=== PATIENT | male | born 1955 | race Caucasian/White ===

== ENCOUNTER 2018-01-16 05:33 | Day surgery (SDC) | payer MEDICARE, MEDICAID ==
[~2018-01-16] VITALS: Ht 182.9 cm; Wt 109.5 kg
--- NOTE | ~2018-01-16 | OP ---
PATIENT NAME: EVA PEGUERO MEDICAL RECORD: [id number] :[birth year] LOCATION:D.OPS ADMISSION DATE: SURGEON: SAMANTA CRAFT DO DATE OF OPERATION: 01/16/2018 PROCEDURE: Colonoscopy with polypectomy. INDICATIONS FOR PROCEDURE: Family history positive for colon cancer in the patient's brother as well as a personal history of colon polyps. His last colonoscopy was in 2014. SCOPE: Olympus video pediatric colonoscope. MEDICATIONS: Propofol 350 mg IV per anesthesia. WITHDRAWAL TIME: 8 minutes. ESTIMATED BLOOD LOSS: Minimal. COMPLICATIONS: None. FINDINGS: Informed consent was given. The patient was made comfortable with the above medication. After reaching an adequate level of sedation by slow IV push, the patient was placed on his left side. A digital rectal examination was performed and was normal. The endoscope was then advanced under direct visualization through the rectum to the cecum, confirmed by the presence of the appendiceal orifice and ileocecal valve. The endoscope was slowly withdrawn and the mucosa was carefully examined. The prep quality was inadequate for colorectal cancer screening purposes. There was still a significant amount of stool and liquid, which could not be suctioned through the endoscope due to solid particles. Of what could be seen of the mucosal alicia, there was a single, benign-appearing, sessile polyp measuring approximately 7 mm in diameter located in the descending colon. It was removed in one piece with a hot snare and completely retrieved. Retroflexion was performed in the rectum with a normal-appearing rectal wall. The endoscope was withdrawn from the patient. The patient tolerated the procedure well, and there were no complications. IMPRESSION: 1. A single benign-appearing sessile polyp located in the descending colon, which was removed with a hot snare. 2. Inadequate prep for colorectal cancer screening. PLAN AND RECOMMENDATIONS: 1. Discharge home when recovery parameters are met. 2. Follow up biopsy specimen results. 3. Repeat colonoscopy at the patient's convenience for further colorectal cancer screening and removal of polyps. I will recommend that the patient have his procedure scheduled after 11 so he can receive a split prep, which will help clear his stool out of the colon. TRANSINT:[id number] Voice Confirmation ID: [id number] DOCUMENT ID: [id number] OPERATIVE REPORT [id number] EVA PEGUERO SAMANTA CRAFT DO at 1232 CC: [id number] DICTATION DATE: 01/16/18 0833 TRACE EVIDENCE TECHNICIAN: 01/16/18 0911 [facility] 01/16/18 [address] [place] [address]
[2018-01-16 05:49] LABS: HEMATOCRIT 47.2 % (42.0-54.0); HEMOGLOBIN 17.1 g/dL (13.5-17.5); MCH 34.8 pg (26.0-34.0); MCHC 36.2 g/dL (31.0-37.0); MCV 95.9 fL (80.0-100.0); MEAN PLATELET VOLUME 9.7 fL (7.4-10.4); RBC 4.92 10x6/uL (4.20-6.10); RDW 13.4 % (11.5-14.5); WBC 8.4 10x3/uL (4.8-10.8)
[2018-01-16 06:29] LABS: ALBUMIN 3.7 g/dL (3.4-5.0); ALKALINE PHOSPHATASE 61 U/L (46-116); ALT (SGPT) 139 U/L (10-68); BILIRUBIN - TOTAL 0.69 mg/dL (0.2-1.3); CALC OSMOLALITY 278 mosm/kg (275-300); CALCIUM 8.9 mg/dL (8.5-10.1); CARBON DIOXIDE 26.4 mmol/L (21.0-32.0); CHLORIDE - SERUM 103 mmol/L (98-107); CREATININE - SERUM 0.9 mg/dL (0.6-1.3); GLUCOSE 120 mg/dL (74-106); PROTEIN - SERUM 8.1 g/dL (6.4-8.2); SODIUM 139 mmol/L (136-145); UREA NITROGEN 12 mg/dL (7-18); eGFR NON AFRICAN AMERICAN > 90 mL/min (90-120)
[2018-01-16] MEDS ORDERED: NORCO 10-325 TA1 TAB PO (06:32)
[2018-01-16] MEDS ORDERED: LISINOPRIL10 MG (06:33)
[2018-01-16] MEDS ORDERED: LYRICA25 MG PO (06:33)
[2018-01-16] MEDS ORDERED: ANORO ELLIPTA1 EACH INH (06:34)
[2018-01-16] MEDS ORDERED: VENTOLIN HFA18 GM INH (06:34)
[2018-01-16] MEDS ORDERED: OMEPRAZOLE40 MG PO (06:35)
[2018-01-16 06:36] VITALS: BP 126/84; Ht 182.9 cm; Wt 109.5 kg
== END 2018-01-16 09:30 | disposition home or self-care (01) ==
LOC: D.OPS 05:33 → EDBD 05:33 → D.OPS 08:00
PROVIDERS: Anesthesiology
DX: K63.5 Polyp of colon (principal); Z80.0 Family history of malignant neoplasm of digestive organs

== ENCOUNTER → 2018-01-18 08:41 | Outpatient (CLI) | payer MEDICARE ==
[2018-01-16 06:36] VITALS: BMI 32.7
[~2018-01-18 08:41] MED LIST: ANORO ELLIPTA1 EACH INH; LISINOPRIL10 MG; LYRICA25 MG PO; NORCO 10-325 TA1 TAB PO; OMEPRAZOLE40 MG PO; VENTOLIN HFA18 GM INH
[2018-01-18 10:17] LABS: ALBUMIN 3.8 g/dL (3.4-5.0); BILIRUBIN - DIRECT 0.13 mg/dL (0.00-0.30); BILIRUBIN - INDIRECT 0.4 mg/dL (0.00-1.00); BILIRUBIN - TOTAL 0.53 mg/dL (0.2-1.3); PROTEIN - SERUM 7.7 g/dL (6.4-8.2)
[2018-01-23 11:00] LABS: HCVGENO - HEP C QUANT QNS IU/mL (())
== END | disposition home or self-care (01) ==
LOC: D.US 01-16 08:30 → D.LAB 01-16 09:00 → D.US 08:30 → EDBD 08:41
PROVIDERS: Internal Medicine Gastroenterology
DX: R10.13 Epigastric pain (principal); R11.0 Nausea; R79.89 Other specified abnormal findings of blood chemistry; B18.2 Chronic viral hepatitis C; D69.6 Thrombocytopenia, unspecified

== ENCOUNTER 2018-01-23 05:10 | Day surgery (SDC) | payer MEDICARE ==
[~2018-01-23] VITALS: Ht 182.9 cm; Wt 109.5 kg
--- NOTE | ~2018-01-23 | OP ---
PATIENT NAME: EVA PEGUERO MEDICAL RECORD: [id number] :57 LOCATION:D.[facility] ADMISSION DATE: SURGEON: SAMANTA RCAFT DO DATE OF OPERATION: 01/23/2018 PROCEDURE: EGD with biopsies. INDICATIONS FOR PROCEDURE: Heartburn, nausea, epigastric pain. SCOPE: Olympus video gastroscope. MEDICATIONS: Propofol 200 mg IV per anesthesia. ESTIMATED BLOOD LOSS: Minimal. COMPLICATIONS: None. FINDINGS: Informed consent was given. The patient was made comfortable with the above medication. After reaching an adequate level of sedation by slow IV push, the patient was placed on his left side. The endoscope was advanced under direct visualization through the mouth to the second portion of the duodenum. The upper and middle thirds of the esophagus appeared normal. In the distal third of the esophagus, there were very small grade I esophageal varices without any bleeding stigmata. At the GE junction, there was mild evidence of LA class A reflux-induced esophagitis. The endoscope was advanced beyond the GE junction into the stomach and retroflexed view of the cardia, where a small sliding hiatal hernia was present. In the stomach, there was diffuse portal hypertensive gastropathy. There were a few scattered superficial small and linear ulcerations present in the antrum and prepyloric region of the stomach. There was diffuse erythema in the stomach consistent with gastritis. Random biopsies were taken to submit for histology and to rule out the presence of H. pylori. There was a single AVM located on the incisura of the stomach. It was not bleeding and no interventions were performed. The endoscope was advanced beyond the pylorus into the duodenum where the bulb, first portion, and second portion of the duodenum appeared normal. The endoscope was then withdrawn from the patient. The patient tolerated the procedure well and there were no complications. IMPRESSION: 1. Grade I esophageal varices in the distal esophagus without bleeding stigmata. 2. LA class A reflux-induced esophagitis. 3. Small sliding hiatal hernia. 4. Diffuse portal hypertensive gastropathy. 5. Gastritis. 6. Multiple small superficial and linear gastric ulcers. 7. 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 PLAN AND RECOMMENDATIONS: 1. Discharge home when recovery parameters are met. 2. Follow up biopsy specimen results. 3. GERD, diet and reflux precautions. 4. Protonix 40 mg daily times 8 weeks. 5. Carafate suspension 1 gram q.i.d. times 2 weeks. 6. Repeat EGD as needed for symptoms. OPERATIVE REPORT [id number] EVA PEGUERO TRANSINT:[id number] Voice Confirmation ID: [id number] DOCUMENT ID: [id number] SAMANTA CRAFT DO at 0816 CC: [id number] DICTATION DATE: 01/23/18 08 SPORTS ATTORNEY: 01/23/18 1107 [facility] [place] 01/23/18 [id number] [place] [address]
[2018-01-23 05:30] LABS: BASOPHILS 0.4 % (0-2); EOSINOPHILS 3.1 % (0-7); HEMATOCRIT 46.1 % (42.0-54.0); HEMOGLOBIN 16.7 g/dL (13.5-17.5); IMMATURE GRANULOCYTES 0.3 % (0-5); LYMPHOCYTES 37.6 % (15-50); MCH 34.4 pg (26.0-34.0); MCHC 36.2 g/dL (31.0-37.0); MCV 95.1 fL (80.0-100.0); MEAN PLATELET VOLUME 9.8 fL (7.4-10.4); MONOCYTES 9.5 % (2-11); NEUTROPHILS 49.1 % (40-80); PLATELET COUNT 93 10x3/uL (130-400); RBC 4.85 10x6/uL (4.20-6.10); RDW 13.1 % (11.5-14.5); WBC 9.2 10x3/uL (4.8-10.8)
[2018-01-23 05:40] LABS: APTT 28.2 SECONDS (22.8-39.4); INR 1.11 (0.85-1.17); PROTIME 13.9 SECONDS (11.6-15.0)
[2018-01-23 05:50] LABS: ALBUMIN 3.6 g/dL (3.4-5.0); ALKALINE PHOSPHATASE 67 U/L (46-116); ALT (SGPT) 134 U/L (10-68); BILIRUBIN - TOTAL 0.68 mg/dL (0.2-1.3); CALC OSMOLALITY 275 mosm/kg (275-300); CALCIUM 8.7 mg/dL (8.5-10.1); CARBON DIOXIDE 25.3 mmol/L (21.0-32.0); CHLORIDE - SERUM 104 mmol/L (98-107); CREATININE - SERUM 0.8 mg/dL (0.6-1.3); GLUCOSE 120 mg/dL (74-106); POTASSIUM - SERUM 3.9 mmol/L (3.5-5.1); PROTEIN - SERUM 7.8 g/dL (6.4-8.2); SODIUM 137 mmol/L (136-145); UREA NITROGEN 15 mg/dL (7-18); eGFR NON AFRICAN AMERICAN > 90 mL/min (90-120)
[2018-01-23 06:21] VITALS: BP 129/75; Ht 182.9 cm; Wt 109.5 kg
[2018-01-27 18:07] LABS: HCVGENO - HEP C QUANT 7370000 IU/mL (()); HCVGENO - LOG 10 6.867 (())
== END 2018-01-23 09:20 | disposition home or self-care (01) ==
LOC: D.OPS 05:10 → EDBD 07:30 → D.OPS 09:20
PROVIDERS: Anesthesiology; Internal Medicine Gastroenterology
DX: K21.0 Gastro-esophageal reflux disease with esophagitis (principal); K44.9 Diaphragmatic hernia without obstruction or gangrene; K76.6 Portal hypertension; K31.89 Other diseases of stomach and duodenum; K29.50 Unspecified chronic gastritis without bleeding; K25.9 Gastric ulcer, unspecified as acute or chronic, without hemorrhage or perforation; K31.819 Angiodysplasia of stomach and duodenum without bleeding; Z01.812 Encounter for preprocedural laboratory examination

== ENCOUNTER 2018-02-25 10:06 | Day surgery (SDC) | payer MEDICARE ==
[~2018-02-25] VITALS: Ht 182.9 cm; Wt 109.1 kg
--- NOTE | ~2018-02-25 | OP ---
PATIENT NAME: EVA PEGUERO MEDICAL RECORD: [id number] :57 LOCATION:D.OPS ADMISSION DATE: SURGEON: SAMANTA CRAFT DO DATE OF OPERATION: 02/25/2018 PROCEDURE: Colonoscopy with polypectomy. INDICATION FOR PROCEDURE: Family history positive for colon cancer in the patient's brother as well as personal history of colon polyps with his last colonoscopy being approximately a month and a half ago with a poor prep. SCOPE: Olympus video pediatric colonoscope. MEDICATIONS: Propofol 600 mg IV per anesthesia. ESTIMATED BLOOD LOSS: Minimal. COMPLICATIONS: None. FINDINGS: Informed consent was given. The patient was made comfortable with the above medication. After reaching an adequate level of sedation by slow IV push, the patient was placed on his left side. A digital rectal examination was performed and was normal. The endoscope was then advanced under direct visualization through the rectum to the cecum, confirmed by the presence of the appendiceal orifice and the ileocecal valve. The endoscope was slowly withdrawn and mucosa was carefully examined. The prep quality was fair. There were 2 polyps visualized on today's examination. They were both sessile and benign appearing. They ranged in size from 4-6 mm in diameter. They were both removed using hot forceps. There were no other findings on today's examination. Retroflexion was performed in the rectum with a normal-appearing rectal wall. The endoscope was then withdrawn from the patient. The patient tolerated the procedure well and there were no complications. IMPRESSION: 1. Two polyps as described above, removed using hot forceps. 2. Otherwise, normal colonoscopy to cecum. PLAN AND RECOMMENDATIONS: 1. Discharge home when recovery parameters are met. 2. Followup biopsy specimen results. 3. Continue current diet and current medications. 4. Recall colonoscopy in 3 years based on family history and personal history of polyps. TRANSINT:[id number] Voice Confirmation ID: [id number] DOCUMENT ID: [id number] SAMANTA CRAFT DO at 1739 CC: [id number] DICTATION DATE: 02/25/18 1314 E COMMERCE RETAILER: 02/25/18 1527 [facility] 02/25/18 [place] [address]
[2018-02-25 10:50] LABS: BASOPHILS 0.4 % (0-2); EOSINOPHILS 2.2 % (0-7); HEMOGLOBIN 16.8 g/dL (13.5-17.5); IMMATURE GRANULOCYTES 0.2 % (0-5); MCH 34.6 pg (26.0-34.0); MCHC 35.7 g/dL (31.0-37.0); MCV 96.7 fL (80.0-100.0); MEAN PLATELET VOLUME 9.5 fL (7.4-10.4); MONOCYTES 8.6 % (2-11); NEUTROPHILS 51.6 % (40-80); PLATELET COUNT 106 10x3/uL (130-400); RBC 4.86 10x6/uL (4.20-6.10); RDW 13.1 % (11.5-14.5); WBC 8.1 10x3/uL (4.8-10.8)
[2018-02-25 11:01] LABS: APTT 28.4 SECONDS (22.8-39.4); INR 1.08 (0.85-1.17); PROTIME 13.6 SECONDS (11.6-15.0)
[2018-02-25 11:04] LABS: ALBUMIN 3.8 g/dL (3.4-5.0); ALKALINE PHOSPHATASE 68 U/L (46-116); ALT (SGPT) 115 U/L (10-68); CALC OSMOLALITY 276 mosm/kg (275-300); CALCIUM 9.1 mg/dL (8.5-10.1); CARBON DIOXIDE 25.4 mmol/L (21.0-32.0); CHLORIDE - SERUM 104 mmol/L (98-107); CREATININE - SERUM 0.7 mg/dL (0.6-1.3); GLUCOSE 106 mg/dL (74-106); PROTEIN - SERUM 8.2 g/dL (6.4-8.2); SODIUM 139 mmol/L (136-145); UREA NITROGEN 10 mg/dL (7-18); eGFR NON AFRICAN AMERICAN > 90 mL/min (90-120)
[2018-02-25 11:24] VITALS: BP 153/91; Ht 182.9 cm; Wt 109.1 kg
== END 2018-02-25 14:33 | disposition home or self-care (01) ==
LOC: D.OPS 10:06
PROVIDERS: Anesthesiology
DX: D12.3 Benign neoplasm of transverse colon (principal); K63.5 Polyp of colon; Z86.010 Personal history of colon polyps; Z80.0 Family history of malignant neoplasm of digestive organs; Z01.812 Encounter for preprocedural laboratory examination

== ENCOUNTER → 2018-07-23 06:37 | Outpatient (CLI) | payer MEDICARE ==
[2018-02-25 11:24] VITALS: BMI 32.6
[2018-07-22 14:17] LABS: ALBUMIN 3.7 g/dL (3.4-5.0); BILIRUBIN - DIRECT 0.13 mg/dL (0.00-0.30); BILIRUBIN - INDIRECT 0.31 mg/dL (0.00-1.00); BILIRUBIN - TOTAL 0.44 mg/dL (0.2-1.3); PROTEIN - SERUM 8.3 g/dL (6.4-8.2)
== END | disposition home or self-care (01) ==
LOC: D.US 07-22 13:40
PROVIDERS: ATTEND Internal Medicine Gastroenterology
DX: R16.0 Hepatomegaly, not elsewhere classified (principal); R94.5 Abnormal results of liver function studies

== ENCOUNTER → 2018-07-29 11:19 | Outpatient (CLI) | payer MEDICARE | END | disposition home or self-care (01) | LOC: D.LAB 11:19 | DX: B18.2 Chronic viral hepatitis C (principal); K74.60 Unspecified cirrhosis of liver; R11.2 Nausea with vomiting, unspecified ==

== ENCOUNTER 2019-05-13 10:44 | Outpatient (CLI) | payer MEDICARE ==
[~2019-05-13] VITALS: Ht 182.9 cm; Wt 105.7 kg
--- NOTE | ~2019-05-13 | HEMODYNAMI ---
PATIENT:EVA PEGUERO MEDICAL RECORD: [id number] : 57 [facility]ATION:[facility] ADMISSION DATE: 05/13/19 Generatedon:05/13/201913:22 Patient name: EVA PEGUERO Patient #: [id number] SSN : : 1955 Date of study: 05/13/2019 Page: Of Hemodynamic Procedure Report Patient Data Patient Demographics Procedure consent was obtained First Name: EVA Gender: Male Last Name: MARIELENA : 1955 [facility] Initial: C Age: 63 year(s) Patient #: [id number] Race: Unknown Additional ID: [id number] Contact details [address]: [address] [place] [address] State: [place] City: [place] Zip code: [address] Past Medical History Allergies Allergen Reaction Date Comments Reported Other allergy 05/13/2019 Tramadol Admission Admission Data Admission Date: 05/13/2019 Admission Time: 10:44 Arrival Date: 05/13/2019 Arrival Time: 0:00 Procedure Procedure Types Cath Procedure Diagnostic Procedure Cardioversion External MARIELY Procedure Description Procedure Date Procedure Date: 05/13/2019 Procedure Start Time: 12:31 Procedure Staff Name Function Marco Gil MD Performing Physician Emely Sorenson RT Monitor Lela Friedman RN Nurse Archana Nolen RT Scrub Edwardo Deluca Director Mortgage Elisabet Alicea CRNA Additional personnel Procedure Data Procedure Complications No complications Procedure Medications Medication Administration Route Dosage 0.9% NaCl I.V. 100 ml/hr Oxygen etCO2 Nasal cannula Refer to Anesthesia Notes for Sedation Medications Hurricaine Morrill P.O. 2 Sprays Hemodynamics Rest Heart Rate: 121 (bpm) Snapshots Pre Cath Intra NCS Post Cath Vital Signs Time Heart Resp SPO2 etCO2 NIBP (mmHg) Rhythm Pain Sedation Rate (ipm) (%) (mmHg) Status Level (bpm) 12:49:53 101 13 94 0 112/92(107) A-Fib 0 (11) 10(A) , No pain 12:54:52 118 21 95 0 Measuring A-Fib 0 (11) 10(A) , No pain 12:56:14 148 14 98 31 Time A-Fib 0 (11) 10(A) Exceeded , No pain 12:58:21 85 14 98 31 102/86(99) A-Fib 0 (11) 10(A) , No pain 13:02:12 110 19 98 32 110/92(100) A-Fib 0 (11) 10(A) , No pain 13:07:11 162 18 96 2.2 Measuring A-Fib 0 (11) 10(A) , No pain 13:07:21 152 14 96 3.8 124/84(89) A-Fib 0 (11) 10(A) , No pain 13:11:27 160 18 86 11.4 115/75(92) A-Fib 0 (11) 5(A) , No pain 13:13:36 100 27 85 30.5 113/80(98) NSR 0 (11) 5(A) , No pain 13:17:46 86 21 91 18.3 107/69(81) NSR 0 (11) 5(A) , No pain Medications Time Medication Route Dose Verified Delivered Reason Notes Effectiv eness by by 12:57:23 0.9% NaCl I.V. 100 Marco Vogel used for ml/hr Louise Elder procedure RN 12:57:31 Oxygen etCO2 Macro Vogel used for Nasal St Hira Friedman procedure cannula MD PIZARRO 12:57:36 Refer to Marco Lara for Anesthesia [facility] sedation Notes for MD DICKINSON Sedation Medications 12:57:47 Hurricaine P.O. 2 Marco Vogel used for Morrill Sprays Broaddus Elder procedure housekeeper and laundry assistant Log Time Note 12:31:26 Arrival Date: 05/13/2019 12:00:00 AM 12:39:25 Procedure Status Elective Heart Cath (OP). 12:39:28 Emely ALVARADO(R) sent for patient. Start room use. 12:39:29 Time tracking: Regular hours (M-F 7:00 - 5:00) 12:39:35 Plan of Care:Hemodynamics will remain stable., Cardiac rhythm will remain stable., Comfort level will be maintained., Respiratory function will remain adequate., Patient/ family verbilizes understanding of procedure., Procedure tolerated without complication., Recovers from procedure without complications.. 12:48:52 Patient received from Pre/Post Procedure Room to CCL 2 Alert and oriented. Tansferred to table in Supine position. 12:48:55 Signed procedure consent form obtained from patient. 12:48:56 Warm blankets applied, and rebekah hugger turned on for patient comfort. 12:48:56 Correct patient and procedure confirmed by team. 12:48:57 ECG and BP/O2 sat monitors applied to patient. 12:48:57 Vital chart was started 12:49:01 Baseline sample Acquired. 12:49:41 Rhythm: atrial fibrillation 12:49:43 Full Disclosure recording started 12:49:51 H&P Date Dictated: 05/12/2019 Within 30 days and on chart.. 12:49:53 Pre-procedure instructions explained to patient. 12:49:55 Family in waiting room. 12:49:57 Patient NPO since Midnight. 12:50:13 Patient allergic to Other allergyTramadol 12:50:15 Is the patient allergic to Iodine/contrast media? No. 12:50:17 Was the patient premedicated? Yes 12:50:18 Is patient on blood thinner?Yes 12:50:22 ACC The patient was administered the following blood thiners within the last 24 hours: Eliquis 12:50:25 Patient diabetic? No. 12:50:29 Snore? Yes 12:50:30 Sleep apnea? Unknown 12:50:38 Airway obstruction? Yes COPD 12:50:41 Dentures? No ? 12:50:54 IV patent on arrival in right forearm with 0.[facility]. 12:50:58 Lab results completed and on chart. 12:51:04 Physician paged 12:55:03 Elisabet Alicea CRNA present and monitoring patient for TIVA. 12:57:23 0.9% NaCl 100 ml/hr I.V. was administered by Lela Friedman RN; used for procedure; Verbal order read back and verified. 12:57:31 Oxygen etCO2 Nasal cannula was administered by Lela Friedman RN; used for procedure; Verbal order read back and verified. 12:57:36 Refer to Anesthesia Notes for Sedation Medications was administered by Marco Gil MD; for sedation; Verbal order read back and verified. 12:57:40 --------ALL STOP TIME OUT------ 12:57:41 Final Timeout: patient, procedure, and site verified with staff and physician. All members of the team are in agreement. 12:57:47 Hurricaine Morrill 2 Sprays P.O. was administered by Lela Friedman RN; used for procedure; Verbal order read back and verified. 12:58:08 Sedation plan: TIVA Medication:Propofol 12:58:41 Quick Combo opened to sterile field. 13:03:16 MARIELY 13:03:20 Edwardo Deluca Test Manager present for MARIELY. 13:03:25 MARIELY started. 13:11:31 MARIELY completed. 13:11:32 ------Cardioversion------ 13:11:34 Quick combo pads placed on patients chest and back. 13:11:45 Defibrillator synced and charged to 200 Joules. 13:11:47 Shock delivered. 13:12:50 Patient cardioverted to sinus rhythm . 13:13:40 Procedure ended.(Physican Out) 13:14:01 Post-procedure physical assessment completed. ASA score P 2 - A patient with mild systemic disease as per Marco Gil MD. 13:14:04 Post procedure rhythm: sinus rhythm 13:14:07 Post procedure instruction explained to patient.Patient verbalizes understanding. 13:14:08 Patient needs reinforcement of post procedure teaching. 13:15:22 Procedure and supply charges have been captured, reviewed, submitted and are correct. 13:15:30 Procedure Complication : No complications 13:15:56 MARIELY Findings: MARIELY w/ cardioversion: no left atrial clot noted (proceed with cardioversion) 13:15:58 Operative report dictated upon procedure completion. 13:15:59 See physician's report for complete and final results. 13:16:01 Report given to Pre/Post Procedure Room. 13:16:04 Patient transfered to Pre/Post Procedure Room with Stretcher. 13:18:22 Vital chart was stopped 13:18:30 End room use (Document Last) 13:18:59 End room use (Document Last) 13:20:02 End room use (Document Last) Device Usage Item Manufacture Quantity Catalog Hospital Part Current Minimal Lot# / Name Number Charge Number Stock Stock Seri al# Code Quick [facility] 1 [id number] Combo Signature Audit Adams Stage Time Signature Unsigned Intra-Procedure 05/13/2019 Emely Sorenson 1:18:59 PM RT(R) Intra-Procedure 05/13/2019 Lela Friedman 1:20:02 PM RN Intra-Procedure 05/13/2019 Marco Rivas 1:22:42 PM Hira DICKINSON Signatures Performing Physician : Signature : Marco Gil MD Date : Time : Monitor : Emely Sorenson Signature : RT Date : Time : Nurse : Lela Friedman RN Signature : Date : Time : [facility] [address] [place] [address], [place] [address]
[2019-05-13] MEDS ORDERED: WELLBUTRIN SR150 MG PO (11:13)
[2019-05-13] MEDS ORDERED: PEPCID AC20 MG PO (11:14)
[2019-05-13] MEDS ORDERED: LASIX40 MG PO (11:14)
[2019-05-13] MEDS ORDERED: AZITHROMYCIN250 MG PO (11:14)
[2019-05-13] MEDS ORDERED: ELIQUIS5 MG PO (11:15)
[2019-05-13] MEDS ORDERED: MULTAQ400 MG PO (11:15)
[2019-05-13] MEDS ORDERED: CYMBALTA60 MG PO (11:17)
[2019-05-13] MEDS ORDERED: ZOFRAN4 MG PO (11:17)
[2019-05-13] MEDS ORDERED: PROTONIX40 MG PO (11:18)
[2019-05-13 11:28] VITALS: BP 127/98; Ht 182.9 cm; Wt 105.7 kg
[2019-05-13 11:38] LABS: BASOPHILS 0.4 % (0-2); EOSINOPHILS 3.5 % (0-7); HEMATOCRIT 49.2 % (42.0-54.0); HEMOGLOBIN 17.5 g/dL (13.5-17.5); IMMATURE GRANULOCYTES 0.2 % (0-5); LYMPHOCYTES 34.7 % (15-50); MCH 34.2 pg (26.0-34.0); MCHC 35.6 g/dL (31.0-37.0); MCV 96.1 fL (80.0-100.0); MEAN PLATELET VOLUME 10.8 fL (7.4-10.4); MONOCYTES 7.3 % (2-11); NEUTROPHILS 53.9 % (40-80); RBC 5.12 10x6/uL (4.20-6.10); RDW 12.7 % (11.5-14.5); WBC 10.3 10x3/uL (4.8-10.8)
[2019-05-13 11:42] LABS: PLATELET COUNT 143 10x3/uL (130-400)
[2019-05-13 11:58] LABS: INR 1.19 (0.85-1.17)
[2019-05-13 12:34] LABS: CALC OSMOLALITY 278 mosm/kg (275-300); CALCIUM 8.9 mg/dL (8.5-10.1); CARBON DIOXIDE 26.4 mmol/L (21.0-32.0); CHLORIDE - SERUM 102 mmol/L (98-107); GLUCOSE 109 mg/dL (74-106); POTASSIUM - SERUM 4.5 mmol/L (3.5-5.1); SODIUM 137 mmol/L (136-145); UREA NITROGEN 23 mg/dL (7-18); eGFR NON AFRICAN AMERICAN 80 mL/min (90-120)
--- NOTE | 2019-05-13 13:30 | NUR ---
PT RECEIVED VIA STRETCHER POST MARIELY AND CARDIOVERSION FOR RECOVERY. PT AWAKE AND ALERT, DENIES PAIN OR DIFFICULITY SWALLOWING. IV PATENT INFUSING VIA R HAND PER ORDERS. PT PLACED ON CARDIAC MONITORS, AND O2 VIA NC AT 1L. HR NSR RATE 76, BP 90/60, RR 13, SAT 95 ON 1L/NC. SLIGHT RED AREA IN MIDDLE CHEST FROM CARDIOVERSION. CALL LIGHT IN REACH, FAMILY AT BEDSIDE
[2019-05-13] MEDS ORDERED: ALDACTONE25 MG PO (13:36)
[2019-05-13] MEDS ORDERED: AMIODARONE HCL200 MG PO (13:37)
--- NOTE | 2019-05-13 13:45 | NUR ---
PT AWAKE AND VISITNG W FAMILY. DENIES PAIN OR DIFFICULITY SWALLOWING. VSS. CALL LIGHT IN REACH, FAMILY AT BS
--- NOTE | 2019-05-13 14:10 | NUR ---
PT DOING WELL, NO C/O PAIN OR DIFFICULITY SWALLOWING. SIPS OF SPRITE GIVEN. VSS. CALL LIGHT IN REACH
--- NOTE | 2019-05-13 14:22 | NUR ---
DISCHARGE INSTRUCTIONS REVIEWED W PT AND DAUGHTER. MED LIST AND MEDICATION CHANGES REVIEWED, INSTRUCTIONS ON NEW MEDICATIONS GIVEN. BOTH VERBALIZED UNDERSTANDING. IV REMOVED W CATH INTACT, MONITORS REMOVED. PT SWALLOWING LIQUIDS W/O DIFFICULITY OF PAIN. PT UP TO DRESS FOR DISCHARGE
--- NOTE | 2019-05-13 14:30 | NUR ---
PT AMBULATED TO BR, VOIDING W/O DIFFICULITY. PT THEN DISCHARGED VIA WC TO DAUGHTER WAITING IN PRIVATE VEHICLE. PT HAD ALL BELONGINGS AND DISCHARGE INFORMATION.
--- NOTE | 2019-05-15 14:13 | TEE ---
PATIENT:EVA PEGUERO MEDICAL RECORD: [id number] LOCATION:D.[facility] AGE OF PATIENT: 63 ADMISSION DATE: 05/13/19 SEX: M REFERRING PHYSICIAN: INTERPRETING PHYSICIAN: JEZ ONOFRE MD TRANSESOPHAGEAL ECHOCARDIOGRAM Date: 05/13/19 MARIELY CHARGE Y INDICATIONS: AFIB, ASSESS FOR CLOTS PREMEDICATIONS: PATIENT'S RESPONSE PROCEDURE DOPPLER MEASUREMENTS: LVIT LA PA RA LVOT RVOT Asc. Ao AV Gradient Peak AV Mean AV Area MV Gradient Peak MV Mean MV Area INTERPRETATION: Doppler: 2-D: COLOR FLOW DOPPLER NORMAL SALINE STUDY: MISCELLANOUS: DIAGNOSIS: PLAN: Model Artists':3 Dr. Fernández Halal Butcher: Brisa MORENO COMMENTS: DATE OF SERVICE: DESCRIPTION OF PROCEDURE: On general sedation via TIVA anesthesia, a transesophageal Omniplane probe was placed in the distal esophagus and proximal stomach without difficulty. FINDINGS: As follows, LVH appears present. LV internal dimensions appear in the upper limits of normal. LV is globally hypokinetic. Overall function reduced 30%. Aortic valve is tricuspid. No evidence of stenosis by Doppler TRANSESOPHAGEAL ECHOCARDIOGRAM REPORT [id number] LISSETTE PEGUERO interrogation. No significant AI. Left atrium appears normal in dimensions. Left atrial appendage is well visualized with no evidence of thrombus. Good contractility via Doppler interrogation. Mitral valve appears normal with no evidence of prolapse. Mild MR. Right-sided chambers are in the upper limits of normal. There is [id number] TR. IMPRESSION: No evidence of thrombus in the left atrial appendage, decreased left ventricular systolic function. TRANSINT:[id number] Voice Confirmation ID: [id number] DOCUMENT ID: [id number] at 1413 CC: [id number] DICTATION DATE: 05/13/19 1320 SUPERVISOR FUR FLOOR WORKER: 05/14/19 0555 [facility] CLI 05/13/19 [facility] [address] [id number]
--- NOTE | 2019-05-15 14:13 | OP ---
PATIENT NAME: EVA PEGUERO MEDICAL RECORD: [id number] :57 LOCATION:D.[facility] ADMISSION DATE: SURGEON: JEZ ONOFRE MD DATE OF OPERATION: 05/13/2019 PROCEDURE: Cardioversion. DESCRIPTION OF PROCEDURE: After general sedation via TIVA via anesthesia, a single synchronized shock was successful in restoring atrial fibrillation to normal sinus rhythm. IMPRESSION: Successful atrial fibrillation to normal sinus rhythm. COMPLICATIONS: None. DISPOSITION: To the floor, stable. TRANSINT:[id number] Voice Confirmation ID: [id number] DOCUMENT ID: [id number] JEZ ONOFRE MD at 1413 CC: [id number] DICTATION DATE: 05/13/19 1319 PATIENT SVCS MGR: 05/13/19 1941 [facility] CLI 05/13/19 [facility] [address] [place] [address]
== END 2019-05-13 14:30 | disposition home or self-care (01) ==
LOC: D.CATH 10:44
PROVIDERS: ATTEND Internal Medicine Interventional Cardiology
DX: I48.91 Unspecified atrial fibrillation (principal); K21.9 Gastro-esophageal reflux disease without esophagitis; R12 Heartburn; I10 Essential (primary) hypertension; Z72.0 Tobacco use

== ENCOUNTER → 2019-08-29 13:40 | Outpatient (CLI) | payer MEDICARE ==
[2019-05-13 11:28] VITALS: BMI 31.6
--- NOTE | ~2019-08-29 | EC ---
PATIENT:EVA PEGUERO DATE OF SERVICE: 08/29/19 SEX: M MEDICAL RECORD: [id number] DATE OF : 57 [facility] AGE OF [facility]: 64 ADMISSION DATE: 08/29/19 REFERRING PHYSICIAN: INTERPRETING PHYSICIAN: JEZ ONOFRE MD ECHOCARDIOGRAM REPORT ECHO CHARGES 4 ECHO COMPLETE Date: 08/29/19 CLINICAL DIAGNOSIS: CARDIOMYOPATHY H/O HTN/A-FIB/CARDIOVERSION ECHOCARDIOGRAPHIC MEASUREMENTS (adult normal given) AC root (d.<3.7cm) 3.3 cm LV Septum d (<1.2 cm> 1.6 cm Valve Excursion 2.3 cm LV Septum (systole) 2.1 cm Left Atria (s.<4.0cm> 4.2 cm LVPW d(<1.2cm) 1.5 cm RV (d.<2.3cm) 3.2 cm LVPW (sytole) 2.2 cm LV diastole(<5.6CM) 5.4 cm MV E-F(>70mm/sec) cm LV systole 3.5 cm LVOT Diameter 2.1 cm MV exc.(>10mm) cm Est.ejection fraction (50-75%) % DOPPLER: LVIT cm/sec A 56.0 cm/sec E 77.0 cm/sec LA cm/sec RVSP 25.0 mmHg LVOT 112 cm/sec AOP1/2T m/s Asc. Ao 129 cm/sec RVOT 53.0 cm/sec RA cm/sec PA 71.0 cm/sec AV Gradient Peak 6.6 mmHg AV Mean 3.7 mmHg AV Area 2.7 cm MV Gradient Peak 3.4 mmHg MV Mean 0.96 mmHg MV Area cm COMMENTS: OP - HC Speck Dyer: 1 ARUN PRISCA Snubber: 3 Dr. Fernández TAPE# PACS Pericardial Effusion N DATE OF SERVICE: Adequate 2D, color flow imaging, spectral Doppler, and M-Mode. LVH is present. LV internal dimensions are normal. Wall motion is normal. EF is greater than or equal to 55%. Aortic valve is tricuspid. No evidence of stenosis by Doppler interrogation. Left atrium is minimally dilated at 4.2 cm. Mitral valve shows no prolapse. Trace MR. Right-sided chambers are grossly normal. Trace TR. ECHOCARDIOGRAM REPORT [id number] EVA PEGUERO TRANSINT:[id number] Voice Confirmation ID: [id number] DOCUMENT ID: [id number] JEZ ONOFRE MD CC: [id number] DICTATION DATE: 09/01/19 112 GRATING MACHINE OPERATOR: 09/01/19 1302 [facility] CLI 08/29/19 [id number] [place] [id number]
[~2019-08-29 13:40] MED LIST changes: +ALDACTONE25 MG PO; +AMIODARONE HCL200 MG PO; +AZITHROMYCIN250 MG PO; +CYMBALTA60 MG PO; +ELIQUIS5 MG PO; +LASIX40 MG PO; +MULTAQ400 MG PO; +PEPCID AC20 MG PO; +PROTONIX40 MG PO; +WELLBUTRIN SR150 MG PO; +ZOFRAN4 MG PO
== END | disposition home or self-care (01) ==
LOC: D.HCCECHO 08-26 10:30
PROVIDERS: ATTEND Internal Medicine Interventional Cardiology
DX: I42.9 Cardiomyopathy, unspecified (principal)

== ENCOUNTER → 2020-01-06 08:47 | Outpatient (CLI) | payer MEDICARE ==
[2019-05-13 11:28] VITALS: BMI 31.6
== END | disposition home or self-care (01) ==
LOC: D.US 08:47
PROVIDERS: ATTEND Internal Medicine Interventional Cardiology
DX: I65.23 Occlusion and stenosis of bilateral carotid arteries (principal)

== ENCOUNTER → 2020-01-12 08:23 | Outpatient (CLI) | payer MEDICARE ==
[2019-05-13 11:28] VITALS: BMI 31.6
== END | disposition home or self-care (01) ==
LOC: D.HCCARDIO 08:23
PROVIDERS: ATTEND Internal Medicine Cardiovascular Disease
DX: I20.9 Angina pectoris, unspecified (principal)

== ENCOUNTER 2020-01-22 07:11 | Day surgery (SDC) | payer MEDICARE ==
[~2020-01-22] VITALS: Ht 180.3 cm; Wt 117.3 kg
--- NOTE | ~2020-01-22 | HEMODYNAMI ---
PATIENT:EVA PEGUERO MEDICAL RECORD: [id number] : 57 LOCATION:[facility] ADMISSION DATE: 01/22/20 Generatedon:01/22/20209:35 Patient name: EVA PEGUERO Patient #: [id number] SSN : [id number] : 1955 Date of study: 01/22/2020 Page: Of Hemodynamic Procedure Report Patient Data Patient Demographics Procedure consent was obtained First Name: EVA Gender: Male Last Name: MARIELENA : 1955 Middle Initial: C Age: 64 year(s) Patient #: [id number] Race: SSN: [id number] Additional ID: [id number] Contact details Address: [address] [place] [address] State: [place] City: [place] Zip code: [address] Past Medical History Performed procedures and imaging results Date Procedure Procedure Results Comments 01/12/2020 Stress testing Positive->Intermediate with SPECT MPI risk Allergies Allergen Reaction Date Comments Reported Other allergy 05/13/2019 Tramadol Other allergy 01/22/2020 tramadol Admission Admission Data Admission Date: 01/22/2020 Admission Time: 7:11 Arrival Date: 01/22/2020 Arrival Time: 0:00 Admit Source: Other Insurance Payor: Medicare [facility] #: [id number] Height (in.): 71 BSA: 2.35 (m2) Height (cm.): 180.34 BMI: 36.06 (kg/m2) Weight (lbs.): 258.54 Weight (kg.): 117.27 Lab Results Lab Result Date: 01/22/2020 Lab Result Time: 0:00 CBC Name Units Result Min Max Hematocrit % 44.7 --(*---)-- 42 54 Hemoglobin g/dl 15.5 --(-*--)-- 13.5 17.5 Procedure Procedure Types Cath Procedure Diagnostic Procedure LHC LHC w/Coronaries FFR/IVUS FFR Initial Sedation Charges Moderate Sedation up to 15 minutes Procedure Description Procedure Date Procedure Date: 01/22/2020 Procedure Start Time: 9:17 Procedure End Time: 9:33 Procedure Staff Name Function Marco Gil MD Performing Physician Arthur Tapia RN Nurse Fatimah Verma RT Monitor Archana Nolen RT Scrub Procedure Data Cath Procedure Fluoroscopy Diagnostic fluoroscopy Total fluoroscopy Time: 3.3 time: 3.3 min min Diagnostic fluoroscopy Total fluoroscopy dose: 915 dose: 915 mGy mGy Contrast Material Contrast Material Type Amount (ml) Isovue 300 77 Entry Location Entry Primary Successful Side Size Upsize Upsize Entry Closure Lindsay ccessful Closure Location (Fr) 1 (Fr) 2 (Fr) Remarks Device Remarks Radial Right 6 Fr Mechanical artery Short Compression Estimated blood loss: 5 ml Diagnostic catheters Device Type Used For End Catheter Placement DIAGNOSTIC Fitzwilliam 110cm 5 Multi-vessel Fr catheter ([id number]) Angiography Procedure Complications No complications Procedure Medications Medication Administration Route Dosage 0.9% NaCl I.V. 100 ml/hr Oxygen etCO2 Nasal cannula 2 l/min Heparin Flush Bag added to field 2 bags (1000units/500ml NS) Lidocaine 2% added to field 20 Radial Cocktail added to field 1 syringe (Verapamil 2mg/Nitro 400mcg/Heparin 1500units) Versed I.V. 2 mg Fentanyl I.V. 100 mcg Radial Cocktail I.A. 1 syringe (Verapamil 2mg/Nitro 400mcg/Heparin 1500units) Heparin Bolus I.V. 2000 units Hemodynamics Rest BSA: 2.35 (m2) HGB: 15.5 (g/dl) O2 Consumption: Estimated: 260.47 (ml/min) O2 Co nsumption indexed: Estimated:110.84 (ml/min/m) Heart Rate: 54 (bpm) Pressure Samples Time Site Value (mmHg) Purpose Heart Use Rate(bpm) 9:19 LV 107/-2,-1 Snapshot 61 9:19 AO 102/64(82) Pullback 61 9:19 LV 115/1,4 Pullback 61 Gradients Valve Time Site 1 Site 2 Mean SEP/DFP Peak To Heart Use (mmHg) (sec/min) Peak Rate (mmHg) (bpm) Aortic 9:19 LV AO 9 17 13 61 115/1,4 102/64(82) Calculations Valve P-P Mean Valve Index Valve Source Name Gradient Area Flow (cm2) Aortic 13 9 13 9 Snapshots Pre Cath Intra NCS Post Cath Vital Signs Time Heart Resp SPO2 etCO2 NIBP (mmHg) Rhythm Pain Sedation Rate (ipm) (%) (mmHg) Status Level (bpm) 8:56:53 54 13 94 11.3 131/79(105) NSR 0 (11) 10(A) , No pain 9:01:09 51 13 93 24.8 134/83(106) NSR 0 (11) 10(A) , No pain 9:05:28 53 11 93 29.4 138/78(116) NSR 0 (11) 10(A) , No pain 9:09:42 54 11 93 27.9 133/87(100) NSR 0 (11) 10(A) , No pain 9:13:58 55 11 93 42.9 141/84(125) NSR 0 (11) 9(A) , No pain 9:19:03 57 13 94 23.3 136/76(100) NSR 0 (11) 9(A) , No pain 9:23:19 60 11 91 43.7 132/73(112) NSR 0 (11) 9(A) , No pain 9:27:37 56 11 92 39.2 130/74(98) NSR 0 (11) 10(A) , No pain 9:31:53 54 12 94 34.6 132/74(114) NSR 0 (11) 10(A) , No pain Medications Time Medication Route Dose Verified Delivered Reason Note s Effectiveness by by 8:54:57 0.9% NaCl I.V. 100 Arthur Arthur Per physician ml/hr Regina Tapia RN RN 8:55:07 Oxygen etCO2 2 l/min Arthur Arthur for low 02 sats Nasal Lorigan Lorbita cannula RN RN 8:55:18 Heparin Flush added 2 bags Arthur Arthur used for Bag to Lorigan Lorigan procedure (1000units/500ml RN RN NS) 8:55:32 Lidocaine 2% added 20ml Arthur Arthur for local to vial Lorigan Lorigan anesthetic RN RN 8:55:42 Radial Cocktail added 1 Arthur Arthur used for (Verapamil to syringe Lorigan Lorigan procedure 2mg/Nitro RN RN 400mcg/Heparin 1500units) 9:16:31 Versed I.V. 2 mg Arthur Arthur for sedation Lorigan Lorigan RN RN 9:16:40 Fentanyl I.V. 100 mcg Arthur Arthur for sedation Regina Tapia RN, RN 9:17:37 Radial Cocktail I.A. 1 Arthur Lara for (Verapamil syringe Regina Gil vasodilation 2mg/Nitro MOIRA DICKINSON 400mcg/Heparin 1500units) 9:26:49 Heparin Bolus I.V. 2,000 Arthur Lara for units Regina Gil anticoagulation MOIRA DICKINSON Procedure Log Time Note 8:19:32 Informed consent obtained and on chart 8:20:06 Diagnostic Cath Status : Elective 8:24:51 Lab Result : Hemoglobin 15.5 g/dl 8:24:51 Lab Result : Hematocrit 44.7 % 8:24:56 Admit Source: Other 8:25:01 ACC Patient presents with Stable Angina CCS Anginal Class 2--Slight limitation of ordinary activity. 8:25:03 Procedure Status Elective Heart Cath (OP). 8:25:06 Time tracking: Regular hours (M-F 7:00 - 5:00) 8:25:11 Plan of Care:Hemodynamics will remain stable., Cardiac rhythm will remain stable., Comfort level will be maintained., Respiratory function will remain adequate., Patient/ family verbilizes understanding of procedure., Procedure tolerated without complication., Recovers from procedure without complications.. 8:25:24 H&P Date Dictated: 01/01/2020 Within 30 days and on chart.. 8:25:25 Pre-procedure instructions explained to patient. 8:25:26 Pre-op teaching completed and patient verbalized understanding. 8:25:28 Family in waiting room. 8:25:30 Patient NPO since Midnight. 8:25:41 Patient allergic to Other allergytramadol 8:25:48 Lab results completed and on chart. 8:26:30 Stress Test: yes; abnormal inferior 8:26:32 Alarms reviewed by R. N. 8:26:33 Sharps counted by scrub and verified by R.N. 8:26:56 Arrival Date: 01/22/2020 12:00:00 AM 8:27:01 Patient Height : 71 inches 8:27:05 Patient Weight : 258.54 lbs 8:27:19 Insurance Payor : Medicare 8:36:41 Fatimah Verma RT(R) sent for patient. Start room use. 8:41:48 Patient received from Pre/Post Procedure Room to CCL 1 Alert and oriented. Tansferred to table in Supine position. 8:42:17 Warm blankets applied, and rebekah hugger turned on for patient comfort. 8:42:18 Correct patient and procedure confirmed by team. 8:42:18 ECG and BP/O2 sat monitors applied to patient. 8:42:24 Is the patient allergic to Iodine/contrast media? No. 8:42:25 Was the patient premedicated? No 8:42:27 Is patient on blood thinner?No 8:42:29 Patient diabetic? No. 8:42:32 If diabetic: On Metformin? N/A 8:42:33 ----Pre-sedation anethsthesia assessment.---- 8:42:37 Previous problem with sedation/anesthesia? No ? 8:42:38 Snore? Yes 8:42:40 Sleep apnea? No 8:42:41 Deviated septum? No 8:42:42 Opens mouth fully? Yes 8:42:44 Sticks out tongue? Yes 8:42:49 Airway obstruction? Yes COPD 8:42:52 Dentures? No ? 8:42:59 Patient pain scale 0/10 ?. 8:43:04 IV patent on arrival in left antecubital with 0.9% NaCl at [facility]. 8:52:09 1) 90+ Normal kidney functon but urine findings or structural abnormalities or genetic trait point to kidney disease. 8:52:14 Maximum allowable contrast dose (3.7 X eGFR X 0.75)250 ml. 8:54:57 0.9% NaCl 100 ml/hr I.V. was administered by Arthur Tapia RN; Per physician; Verbal order read back and verified. 8:55:07 Oxygen 2 l/min etCO2 Nasal cannula was administered by Arthur Tapia RN; for low 02 sats; Verbal order read back and verified. 8:55:18 Heparin Flush Bag (1000units/500ml NS) 2 bags added to field was administered by Arthur Tapia RN; used for procedure; Verbal order read back and verified. 8:55:32 Lidocaine 2% 20ml vial added to field was administered by Arthur Tapia RN; for local anesthetic; Verbal order read back and verified. 8:55:42 Radial Cocktail (Verapamil 2mg/Nitro 400mcg/Heparin 1500units) 1 syringe added to field was administered by Arthur Tapia RN; used for procedure; Verbal order read back and verified. 8:55:48 Vital chart was started 9:08:03 Zero performed for pressure channel P1 9::55 Baseline sample Acquired. 9:13:36 Physician arrived 9:13:37 --------ALL STOP TIME OUT------ 9:13:38 Final Timeout: patient, procedure, and site verified with staff and physician. All members of the team are in agreement. 9:13:42 Right Radial & Right Groin site verified by team. 9:13:46 Fire Safety Assessment: A--An alcohol-based skin anteseptic being used preoperatively., C--Open oxygen or nitrous oxide is being used., D--An ESU, laser, or fiber-optic light is being used. 9:13:50 Physical assessment completed. ASA score P 2 - A patient with mild systemic disease as per Marco Gil MD. 9:13:55 Sedation plan: IV Moderate Sedation Medication:Versed, Fentanyl 9:13:59 Use device set Radial Dx or PCI 9:14:00 ACIST Syringe (85213) opened to sterile field. 9:14:01 Medline Cath Pack ([id number]) opened to sterile field. 9:14:01 Bag Decanter () opened to sterile field. 9:14:01 ACIST Hand Control (05672) opened to sterile field. 9:14:02 ACIST Manifold (36394) opened to sterile field. 9:14:02 Tegaderm 4 x 4 (1626W) opened to sterile field. 9:14:04 MBrace Wrist Support ([id number]) opened to sterile field. 9:14:08 EMERALD Guide Wire (740-487) opened to sterile field. 9:14:08 SHEATH 6FR RAIN (0577860) opened to sterile field. 9:16:31 Versed 2 mg I.V. was administered by Arthur Tapia RN; for sedation; Verbal order read back and verified. 9:16:40 Fentanyl 100 mcg I.V. was administered by Arthur Tapia RN; for sedation; Verbal order read back and verified. 9:17:09 Procedure started. 9:17:10 Full Disclosure recording started 9:17:13 Local anesthetic to right radial artery with Lidocaine 2% by Marco Gil MD.INITIAL ACCESS ONLY 9:17:23 A 6 Fr Short sheath was inserted into the Right Radial artery 9:17:37 Radial Cocktail (Verapamil 2mg/Nitro 400mcg/Heparin 1500units) 1 syringe I.A. was administered by Marco Gil MD; for vasodilation; Verbal order read back and verified. 9:18:11 A DIAGNOSTIC Fitzwilliam 110cm 5 Fr catheter (750813) was advanced over the wire and used for Multi-vessel Angiography. 9:19:41 LV hemodynamics recorded. 9:19:42 LV gram done using ROLLINS 9:19:46 Injector settings: Ml/sec: 5, Volume: 15, 9:19:53 EF : 55 % 9:20:00 LCA angiography performed. 9:20:03 Injector settings: Ml/sec: 3, Volume: 6, 9:21:51 RCA angiography performed. 9:22:16 Injector settings: Ml/sec: 3, Volume: 6\, 9:23:17 Catheter removed. 9:23:28 INFLATOR Merit BasixCompak ([id number]) opened to sterile field. 9:23:29 Alex Verrata Plus pressure wire (31545U) opened to sterile field. 9:23:36 GUIDE 6FR HS I catheter (LA6HSI) opened to sterile field. 9:23:42 ACCDominant side:Right 9:23:45 Proceeding to intervention. 9:23:50 ACC Pre-intervention JOCELYN Flow is 3. 9:23:57 6 Fr HS 1 guide catheter was inserted over the wire 9:24:03 FFR/IFR wire advanced. 9:24:06 Baseline FFR 1. 9:26:49 Heparin Bolus 2,000 units I.V. was administered by Marco Gil MD; for anticoagulation; Verbal order read back and verified. 9:27:34 Wire advanced across lesion. 9:29:13 pRCA lesion measured at 0.91 with IFR 9:29:39 Wire removed. 9:29:40 Guide catheter removed. 9:29:48 Sheath removed intact; hemostasis achieved with Mechanical Compression to the Right Radial artery. 9:29:59 ZEPHYR REGULAR TR BAND (709278) opened to sterile field. 9:30:02 Procedure ended.(Physican Out) 9:30:41 Fluoroscopy time 03.30 minutes. 9:30:53 Fluoroscopy dose: 915 mGy 9:30:53 Flurop Dose total: 915 9:30:58 Dose Area Product 20251 mGy/cm. 9:31:02 Contrast amount:Isovue 300 77ml. 9:31:03 Maximum allowable dose exceeded? No. 9:31:04 Sharps counted by scrub and verified by R.N. 9:31:06 Hundred band inflated with 10cc of air. 9:31:08 Insertion/operative site no bleeding no hematoma. 9:31:11 Post right radial artery:stable 9:31:15 Post procedure rhythm: unchanged. 9:31:19 Estimated blood loss: 5 ml 9:31:21 Post procedure instruction explained to patient.Patient verbalizes understanding. 9:31:21 Patient needs reinforcement of post procedure teaching. 9:32:34 Procedure type changed to Cath procedure, Diagnostic procedure, LHC, C w/Coronaries, FFR/IVUS, FFR Initial, Sedation Charges, Moderate Sedation up to 15 minutes 9:32:37 Procedure and supply charges have been captured, reviewed, submitted and are correct. 9:32:45 Procedure Complication : No complications 9:32:52 Vital chart was stopped 9:32:55 [facility] Findings: mild to moderate CAD (<70%) 9:32:56 Operative report dictated upon procedure completion. 9:32:56 See physician's report for complete and final results. 9:32:59 Report given to Pre/Post Procedure Room. 9:33:03 Patient transfered to Pre/Post Procedure Room with Stretcher. 9:33:05 Procedure ended. 9:33:05 Full Disclosure recording stopped 9:33:08 End room use (Document Last) 9:34:50 ACT drawn and resulted at 303 seconds. (normal therapeutic range 180-240 seconds). Device Usage Item Name Manufacture Quantity Catalog Hospital Part Current Mini mal Lot# / Number Charge Number Stock Stock Serial# Code ACIST Acist 1 75562 [id number] [id number] [id number] 20 Syringe Diligent Technologies (76418) Adconion [employer] Inc Medline Medline 1 [id number] [id number] 10433 053332 5 Cath Pack ([id number]) Bag Microtek 1 487615 92336 283957 5 Decanter Medical Inc. () ACIST Hand Acist 1 22166 398285 642517 999425 5 Control Medical (22877) Systems Inc ACIST Acist 1 52591 668685 446770 386973 5 Manifold Medical (46807) Systems Inc Tegaderm 4 3M 1 1626W 946912 934821 249518 5 x 4 (1626W) MBrace Advanced 1 140-0250-00 855801 26443 718819 5 Wrist Vascular Support Dynamics ([id number]) EMERALD Cardinal 1 502-061 478309 950928 226073 5 Guide Wire Health (502455) SHEATH 6FR Cardinal 1 1989412 943046 4847996 044823 5 [facility] (8017905) DIAGNOSTIC Terumo 1 40-6643 900815 117421 963695 5 Fitzwilliam 110cm 5 Fr catheter (239120) INFLATOR Merit 1 QX3320 945373 177653 945424 15 [facility] Medical BasixCompak (TE9486) Alex Alex 1 17033Y 413037 130765212 953318 5 Verrata Plus pressure wire (77710Q) GUIDE 6FR Medtronic 1 LA6HSI 204973 66163 766141 1 HS I catheter (LA6HSI) ZEPHYR Cardinal 1 702569 731706 9476001 015625 5 REGULAR TR Health BAND (425588) Signature Audit [place] Stage Time Signature Unsigned Intra-Procedure 01/22/2020 Fatimah Verma 9:35:05 AM RT(R) Intra-Procedure 01/22/2020 Arthur 9:35:25 AM Regina PIZARRO Intra-Procedure 01/22/2020 Marco Rivas 9:35:[address] [facility] [address] [facility] [place] [address]
[~2020-01-22 07:11] MED LIST changes: +BENTYL10 MG PO; +CARAFATE1 G PO; +LISINOPRIL20 MG PO; +LYRICA100 MG PO; +MECLIZINE HCL25 MG PO; +METOPROLOL TART50 MG PO; +MOVANTIK25 MG PO; +NITROQUICK0.4 MG SL; +SYMBICORT 16010.2 GM INH
[2020-01-22 07:49] VITALS: BP 144/82; Ht 180.3 cm; Wt 117.3 kg
[2020-01-22 07:58] LABS: BASOPHILS 0.4 % (0-2); EOSINOPHILS 4.3 % (0-7); HEMATOCRIT 44.7 % (42.0-54.0); HEMOGLOBIN 15.5 g/dL (13.5-17.5); IMMATURE GRANULOCYTES 0.3 % (0-5); LYMPHOCYTES 43.1 % (15-50); MCH 33.8 pg (26.0-34.0); MCHC 34.7 g/dL (31.0-37.0); MCV 97.6 fL (80.0-100.0); MEAN PLATELET VOLUME 9.3 fL (7.4-10.4); MONOCYTES 10.1 % (2-11); NEUTROPHILS 41.8 % (40-80); RBC 4.58 10x6/uL (4.20-6.10)
[2020-01-22 07:59] LABS: PLATELET COUNT 111 10x3/uL (130-400)
[2020-01-22 08:21] LABS: ALT (SGPT) 71 U/L (10-68); CALC OSMOLALITY 278 mosm/kg (275-300); CALCIUM 8.7 mg/dL (8.5-10.1); CARBON DIOXIDE 26.7 mmol/L (21.0-32.0); CHLORIDE - SERUM 104 mmol/L (98-107); CHOL - HDL RATIO 5.1 ratio (2.3-4.9); CHOLESTEROL, TOTAL 154 mg/dL (0-200); CREATININE - SERUM 0.8 mg/dL (0.6-1.3); GLUCOSE 113 mg/dL (74-106); HDL CHOLESTEROL 30 mg/dL (32-96); LDL CHOLESTEROL 90 mg/dL (0-100); POTASSIUM - SERUM 4.1 mmol/L (3.5-5.1); SODIUM 139 mmol/L (136-145); TRIGLYCERIDE 170 mg/dL (30-200); UREA NITROGEN 12 mg/dL (7-18); eGFR NON AFRICAN AMERICAN > 90 mL/min (90-120)
--- NOTE | 2020-01-22 09:45 | NUR ---
PT REC'D TO ROOM 4 VIA STRETCHER FROM MOTOR COACH CHAUFFEUR. MONITORS ESTAB. NO FAMILY AT BS. SEE HORSE BREEDER. ALARMS ON AND C/L IN REACH.
--- NOTE | 2020-01-22 10:00 | NUR ---
R WRIST SITE C/D/I, NO S/S BLEEDING OR HEMATOMA. R ARM/HAND WARM WITH PALP PULSES AND BRISK CAP REFILL. VSS. DAUGHTER AT BS. ALARMS ON AND C/L IN REACH.
--- NOTE | 2020-01-22 10:10 | NUR ---
DR ONOFRE AT TO UPDATE PT AND HIS DAUGHTER.
--- NOTE | 2020-01-22 10:30 | NUR ---
R WRIST SITE C/D/I, NO S/S BLEEDING OR SWELLING, HAND WARM, PALP PULSES. VSS. RESTING QUIETLY. GIVEN COFFEE PER REQUEST.
--- NOTE | 2020-01-22 11:00 | NUR ---
2CC AIR REMOVED FROM Z BAND, NO S/S BLEEDING OR HEMATOMA. PULSES PALP. VSS. ALARMS ON AND C/L IN REACH.
--- NOTE | 2020-01-22 11:15 | NUR ---
TOTAL 5 CC REMOVED FROM Z BAND. NO S/S BLEEDING OR SWELLING. PULSES PALP. PT DENIES NEEDS. C/L IN REACH.
--- NOTE | 2020-01-22 11:30 | NUR ---
ALL AIR REMOVED FROM Z BAND, NO S/S BLEEDING OR SWELLING. WILL CONT CLOSE MONITORING. VSS.
--- NOTE | 2020-01-22 11:45 | NUR ---
R WRIST SITE C/D/I, NO S/S BLEEDING OR HEMATOMA. PULSES PALP. Z BAND OFF AND DSG APPLIED. PIV D/C'D INTACT, DSG APPLIED. PT ALLOWED UP TO GET DRESSED AND GO TO BR INDEPENDENTLY.
--- NOTE | 2020-01-22 11:50 | NUR ---
ALL DISCHARGE INSTRUCTIONS REVIEWED WITH PT, INCLUDING RESTRICTIONS, MEDS AND F/U APPT. PT VERBALIZES UNDERSTANDING.
--- NOTE | 2020-01-22 11:56 | NUR ---
PT D/C'D TO PRIVATE VEHICLE WITH DAUGHTER, PT HAS ALL PAPERWORK AND BELONGINGS.
--- NOTE | 2020-01-23 09:08 | OP ---
PATIENT NAME: EVA PEGUERO MEDICAL RECORD: [id number] :57 LOCATION:D.CAT ADMISSION DATE: SURGEON: JEZ ONOFRE MD DATE OF OPERATION: 01/22/2020 PROCEDURE: Left heart catheterization, selective coronary angiography, right radial approach. CATHETERS: A 5-Nepali sheath, 5/4 left and right Edwin, 5/4 pig, hockeystick catheter and IFR wire. The patient was returned to duval. TR band was placed. FINDINGS: Left ventriculography in 30-degree ROLLINS view: Normal wall motion and normal systolic function. CORONARY ANATOMY: LEFT MAIN: Left main is free of disease. LAD: Free of disease in the diagonal system. CIRCUMFLEX: Free of disease in the marginal system. RIGHT CORONARY ARTERY: Has a questionable area in its proximal portion; however, IFR to this area was normal at 0.92. IMPRESSION: No significant coronary artery disease. Left ventricular function remains normal. TRANSINT:[id number] Voice Confirmation ID: [id number] DOCUMENT ID: [id number] JEZ ONOFRE MD at 0908 CC: [id number] DICTATION DATE: 01/22/20 0936 [employer]ERCISE [employer]ENCE [employer]NSH[employer]: 01/22/20 1239 [facility] 01/22/20 [id number] [place] [address]
== END 2020-01-22 11:56 | disposition home or self-care (01) ==
LOC: D.CATH 07:11
PROVIDERS: ATTEND Internal Medicine Interventional Cardiology
DX: I48.91 Unspecified atrial fibrillation (principal); I20.9 Angina pectoris, unspecified; R42 Dizziness and giddiness; I10 Essential (primary) hypertension; E78.5 Hyperlipidemia, unspecified

== ENCOUNTER 2020-08-16 07:49 | Day surgery (SDC) | payer MEDICARE ==
[~2020-08-16] VITALS: Ht 180.3 cm; Wt 112.3 kg
[2020-08-16 08:14] LABS: BASOPHILS 0.2 % (0-2); EOSINOPHILS 2.3 % (0-7); HEMATOCRIT 47.8 % (42.0-54.0); HEMOGLOBIN 16.9 g/dL (13.5-17.5); IMMATURE GRANULOCYTES 0.2 % (0-5); LYMPHOCYTE ABS# 2.58 10x3/uL (1.32-3.57); LYMPHOCYTES 29.1 % (15-50); MCH 33.7 pg (26.0-34.0); MCHC 35.4 g/dL (31.0-37.0); MCV 95.2 fL (80.0-100.0); MEAN PLATELET VOLUME 9.9 fL (7.4-10.4); MONOCYTES 11.4 % (2-11); NEUTROPHIL ABS# 5.03 10x3/uL (1.78-5.38); NEUTROPHILS 56.8 % (40-80); PLATELET COUNT 137 10x3/uL (130-400); RBC 5.02 10x6/uL (4.20-6.10); RDW 13.2 % (11.5-14.5); WBC 8.9 10x3/uL (4.8-10.8)
[2020-08-16 08:21] LABS: CALC OSMOLALITY 281 mosm/kg (275-300); CALCIUM 9.1 mg/dL (8.5-10.1); CARBON DIOXIDE 23.9 mmol/L (21.0-32.0); CHLORIDE - SERUM 105 mmol/L (98-107); CREATININE - SERUM 0.8 mg/dL (0.6-1.3); GLUCOSE 127 mg/dL (74-106); POTASSIUM - SERUM 4.1 mmol/L (3.5-5.1); SODIUM 139 mmol/L (136-145); UREA NITROGEN 17 mg/dL (7-18); eGFR NON AFRICAN AMERICAN > 90 mL/min (90-120)
[2020-08-16 08:24] LABS: INR 1.16 (0.85-1.17); PROTIME 13.7 SECONDS (11.6-15.0)
[2020-08-16 09:45] VITALS: Ht 180.3 cm; Wt 112.3 kg
--- NOTE | 2020-08-16 11:16 | NUR ---
AT BEDSIDE 1120 PT DRINKING COFFEE, NO N/V
--- NOTE | 2020-08-16 12:14 | NUR ---
DISCHARGE INSTUCTIONS GIVEN AND PT VERBALIZED AN UNERSTANDING. IV D/C'D WITH CANNULA INTACT, PRESSURE HELD AND DRSG PLACED. DISCHARGED HOMEIN STABLE CONDITION AND WITHOUT C/O
--- NOTE | 2020-08-17 14:19 | OP ---
PATIENT NAME: EVA PEGUERO MEDICAL RECORD: [id number] :57 LOCATION:D.OPS ADMISSION DATE: SURGEON: SAMANTA CRAFT DO DATE OF OPERATION: 08/16/2020 PROCEDURE: EGD with biopsies. INDICATION FOR PROCEDURE: Epigastric pain, GERD, nausea. SCOPE: Olympus video gastroscope. MEDICATIONS: Propofol 100 mg IV per anesthesia. ESTIMATED BLOOD LOSS: Minimal. COMPLICATIONS: None. FINDINGS: Informed consent was given. The patient was made comfortable with the above medication. After reaching an adequate level of sedation by slow IV push, the patient was placed on his left side. The endoscope was advanced under direct visualization through the mouth to the second portion of the duodenum with ease. In the esophagus, there were grade I esophageal varices in the distal esophagus without bleeding stigmata. No bands were required on today's examination. At the GE junction, there were changes consistent with LA class A reflux-induced esophagitis. The endoscope was advanced beyond the GE junction into the stomach and retroflexed view of the cardia and fundus. There was a small sliding hiatal hernia, but no evidence of gastric varices present. Throughout the stomach, there were diffuse portal hypertensive gastropathy changes of mild severity. There was a small avascular malformation located on the incisura, which was not bleeding and showed no stigmata of bleeding. No interventions were required. A single cold forceps biopsies was taken from the antrum to rule out the presence of H. pylori. The endoscope was advanced beyond the pylorus into the duodenum, which appeared normal to the second portion. The endoscope was then withdrawn from the patient. The patient tolerated the procedure well and there were no complications. IMPRESSION: 1. Grade I esophageal varices without bleeding stigmata. 2. LA class A reflux-induced esophagitis. 3. Small sliding hiatal hernia. 4. Diffuse portal hypertensive gastropathy. 5. 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 PLAN AND RECOMMENDATIONS: 1. Discharge home when recovery parameters are met. 2. Follow up biopsy specimen results. 3. GERD diet and reflux precautions. 4. Continue current medications. 5. Recall EGD in 2 years for surveillance of esophageal varices. TRANSINT:[id number] Voice Confirmation ID: [id number] DOCUMENT ID: [id number] OPERATIVE REPORT [id number] PEGUERO,EVASAMANTA JC DO at 1419 CC: [id number] DICTATION DATE: 08/16/20 1059 RECOOPERER: 08/16/202010 [facility] 08/16/20 [address] [place] [address]
== END 2020-08-16 12:14 | disposition home or self-care (01) ==
LOC: D.OPS 07:49
PROVIDERS: Anesthesiology; ATTEND Internal Medicine Gastroenterology
DX: R10.13 Epigastric pain (principal); R11.0 Nausea; I85.00 Esophageal varices without bleeding; K21.00 Gastro-esophageal reflux disease with esophagitis, without bleeding; K44.9 Diaphragmatic hernia without obstruction or gangrene; K76.6 Portal hypertension; K31.89 Other diseases of stomach and duodenum; Z80.0 Family history of malignant neoplasm of digestive organs; K59.03 Drug induced constipation; K92.1 Melena; B19.20 Unspecified viral hepatitis C without hepatic coma; Z86.010 Personal history of colon polyps; K74.60 Unspecified cirrhosis of liver

== ENCOUNTER 2020-08-30 10:08 | Day surgery (SDC) | payer MEDICARE ==
[~2020-08-30] VITALS: Ht 180.3 cm; Wt 106.8 kg
[2020-08-30 10:45] LABS: BASOPHILS 0.4 % (0-2); EOSINOPHILS 2.8 % (0-7); HEMATOCRIT 44.6 % (42.0-54.0); IMMATURE GRANULOCYTES 0.3 % (0-5); LYMPHOCYTE ABS# 2.77 10x3/uL (1.32-3.57); LYMPHOCYTES 35.2 % (15-50); MCH 34.1 pg (26.0-34.0); MCHC 35.9 g/dL (31.0-37.0); MCV 95.1 fL (80.0-100.0); MEAN PLATELET VOLUME 9.6 fL (7.4-10.4); MONOCYTES 8.9 % (2-11); NEUTROPHIL ABS# 4.14 10x3/uL (1.78-5.38); NEUTROPHILS 52.4 % (40-80); PLATELET COUNT 125 10x3/uL (130-400); RBC 4.69 10x6/uL (4.20-6.10); RDW 12.7 % (11.5-14.5); WBC 7.9 10x3/uL (4.8-10.8)
[2020-08-30 11:00] LABS: INR 1.24 (0.85-1.17); PROTIME 14.5 SECONDS (11.6-15.0)
[2020-08-30 11:02] LABS: ALBUMIN 3.7 g/dL (3.4-5.0); ALKALINE PHOSPHATASE 55 U/L (30-120); ALT (SGPT) 53 U/L (10-68); BILIRUBIN - TOTAL 0.45 mg/dL (0.2-1.3); CALC OSMOLALITY 275 mosm/kg (275-300); CALCIUM 8.8 mg/dL (8.5-10.1); CARBON DIOXIDE 25.9 mmol/L (21.0-32.0); CHLORIDE - SERUM 102 mmol/L (98-107); CREATININE - SERUM 0.9 mg/dL (0.6-1.3); GLUCOSE 114 mg/dL (74-106); POTASSIUM - SERUM 3.9 mmol/L (3.5-5.1); PROTEIN - SERUM 7.5 g/dL (6.4-8.2); SODIUM 137 mmol/L (136-145); UREA NITROGEN 14 mg/dL (7-18); eGFR NON AFRICAN AMERICAN 90 mL/min (90-120)
[2020-08-30 12:11] VITALS: BP 121/62; Ht 180.3 cm; Wt 106.8 kg
--- NOTE | 2020-08-30 14:00 | NUR ---
DC TEACHING TO PT. VERBALIZED UNDERSTANDING. 1420 PIV REMOVED, CATHETER INTACT. PT GETTING DRESSED. 1432 PT DC'D VIA WC ACCOMPANIED BY THIS NURSE TO POV WITH ALL BELONGINGS AND DC PACKET. SISTER DRIVING
--- NOTE | 2020-08-31 15:22 | OP ---
PATIENT NAME: EVA PEGUERO MEDICAL RECORD: [id number] :57 LOCATION:D.OPS ADMISSION DATE: SURGEON: SAMANTA CRAFT DO DATE OF OPERATION: 08/30/2020 PROCEDURE: Colonoscopy with polypectomy. INDICATION FOR PROCEDURE: Drug-induced constipation, family history positive for colon cancer in the patient's brother, hematochezia, history of polyps. SCOPE: Olympus video pediatric colonoscope. MEDICATIONS: Propofol 450 mg IV per anesthesia. WITHDRAWAL TIME: 18 minutes. ESTIMATED BLOOD LOSS: Minimal. COMPLICATIONS: None. FINDINGS: Informed consent was given. The patient was made comfortable with the above medication. After reaching an adequate level of sedation by slow IV push, the patient was placed on his left side. A digital rectal examination was performed and was normal. The endoscope was then advanced under direct visualization through the rectum to the cecum, confirmed by the presence of the appendiceal orifice and ileocecal valve. The endoscope was slowly withdrawn and the mucosa was carefully examined. The prep quality was fair. There were 2 polyps visualized on today's examination. The first was a benign-appearing sessile polyp located in the ascending colon, which measured approximately 9-10 mm. It was removed using a hot snare. There was another polyp in the sigmoid colon, which was a benign-appearing and flat and measured approximately 4-5 mm in diameter. It was removed using a hot snare. Retroflexion was performed in the rectum with visualization of grade I internal hemorrhoids. The endoscope was withdrawn from the patient. The patient tolerated the procedure well and there were no complications. IMPRESSION: 1. Two polyps as described above, removed using hot snare. 2. Grade I internal hemorrhoids without bleeding. PLAN AND RECOMMENDATIONS: 1. Discharge home when recovery parameters are met. 2. Follow up biopsy specimen results. 3. High fiber diet. 4. Continue current medications. 5. Recall colonoscopy in 3 years. TRANSINT:[id number] Voice Confirmation ID: [id number] DOCUMENT ID: [id number] OPERATIVE REPORT [id number] EVA PEGUERO SAMANTA CRAFT DO at 1522 CC: [id number] DICTATION DATE: 08/30/20 1336 [employer] EXAMINER: 08/30/20 2143 [facility] 08/30/20 [facility] [address] [place] [address]
== END 2020-08-30 14:32 | disposition home or self-care (01) ==
LOC: D.OPS 10:08
PROVIDERS: ATTEND Internal Medicine Gastroenterology
DX: K59.03 Drug induced constipation (principal); Z80.0 Family history of malignant neoplasm of digestive organs; K92.1 Melena; Z86.010 Personal history of colon polyps; K63.5 Polyp of colon; K64.0 First degree hemorrhoids; R10.11 Right upper quadrant pain; K21.9 Gastro-esophageal reflux disease without esophagitis; R11.0 Nausea; K74.60 Unspecified cirrhosis of liver